=== PATIENT | female | born 1955 | race Caucasian/White ===

== ENCOUNTER → 2018-04-07 | Outpatient (REF) | payer BC ==
[2018-04-07 14:24] LABS: ERYTHROCYTE SEDIMENTATION RATE 15 mm/hr (0-30)
[2018-04-07 14:49] LABS: BLOOD UREA NITROGEN 11 MG/DL (7-18)
[2018-04-07 14:49] LABS: C REACTIVE PROTEIN QUANTITATIV 0.56 MG/DL (0.00-0.30); CREATININE FOR GFR 0.96 MG/DL (0.55-1.30); GLOMERULAR FILTRATION RATE > 60.0 (>45)
[2018-04-08 14:17] LABS: ANGIOTENSIN 1 CONVERTING ENZYM 93 U/L (14-82)
[2018-04-08 16:50] LABS: FOLATE 5.3 NG/ML
== END ==
LOC: M LABNEURO 11:04
DX: I10 Essential (primary) hypertension (principal); D86.9 Sarcoidosis, unspecified; G62.9 Polyneuropathy, unspecified
CPT/HCPCS: 82565